=== PATIENT | female | born 2000 | race Caucasian/White ===

== ENCOUNTER 2020-05-07 10:52 | Emergency (ER) | payer OTHER, MEDICAID ==
[~2020-05-07] VITALS: Ht 175.2 cm; Wt 65.5 kg
--- NOTE | 2020-05-07 11:12 | ED General ---
General Stated Complaint: LIGHTHEADED, 9 WKS Source of Information: Patient Exam Limitations: No Limitations History of Present Illness Date Seen by Provider: May 07, 2020 Time Seen by Provider: 11:06 Initial Comments To ER by EMS with reports of lightheadedness and nausea. She was in class when she felt like she might vomit. She got up to go to the bathroom and her vision got dark and she got lightheaded. She opened her eyes and she was sitting on the floor. Does not believe she fell. No nominal cramping or vaginal bleeding. She is 9 weeks gestation following with Dr[address] Chris Bueno out of [place]. Currently on Unisom for n/v. She has had an ultrasound which she reports was normal just last week.. Has been having a lot of nausea with this. Timing/Duration: Intermittent Severity: Moderate Associated Systoms: Denies Symptoms Allergies and Home Medications Allergies Coded Allergies: No Known Drug Allergies (Unverified , 05/07/20) Home Medications Promethazine HCl 25 Mg Tablet, 12.5-25 MG PO Q8H PRN for NAUSEA/VOMITING Prescribed by: MARIAJOSE RAYO on 05/07/20 1308 Patient Home Medication List Home Medication List Reviewed: Yes Review of Systems Review of Systems Constitutional: see HPI EENTM: see HPI Respiratory: no symptoms reported Cardiovascular: no symptoms reported Genitourinary: no symptoms reported Musculoskeletal: no symptoms reported Skin: no symptoms reported Psychiatric/Neurological: No Symptoms Reported Hematologic/Lymphatic: No Symptoms Reported Immunological/Allergic: no symptoms reported Physical Exam Vital Signs Vital Signs - First Documented 05/07/20 10:52 Temp 36.2 Pulse 89 Resp 18 B/P (MAP) 98/66 (77) Pulse Ox 98 Capillary Refill : Height, Weight, BMI Height: '" Weight: lbs. oz. kg; BMI Method: General Appearance: No Apparent Distress, WD/WN, Other (a little hypotensive at 98 systolic. HR normal, O2 100%, alert and oriented. C/o being "shakey". Very pleasant. IV started 22ga left AC by me. ) Eyes: Bilateral Eye Normal Inspection, Bilateral Eye PERRL, Bilateral Eye EOMI HEENT: PERRL/EOMI, TMs Normal Neck: Full Range of Motion, Normal Inspection Respiratory: No Accessory Muscle Use, No Respiratory Distress Cardiovascular: Regular Rate, Rhythm, Normal Peripheral Pulses Gastrointestinal: Normal Bowel Sounds, Non Tender, Soft Extremity: Normal Capillary Refill, Normal Inspection Neurologic/Psychiatric: Alert, Oriented x3 Skin: Normal Color, Warm/Dry Progress/Results/Core Measures Suspected Sepsis SIRS Temperature: Pulse: Respiratory Rate: Laboratory Tests 05/07/20 11:02: White Blood Count 11.2H Blood Pressure / Mean: Laboratory Tests 05/07/20 11:02: Creatinine 0.71, Platelet Count 224, Total Bilirubin 0.9 Results/Orders Lab Results Laboratory Tests Test 05/07/20 11:02 05/07/20 13:01 Range/Units White Blood Count 11.2 H 4.3-11.0 10^3/uL Red Blood Count 4.78 3.80-5.11 10^6/uL Hemoglobin 14.8 11.5-16.0 g/dL Hematocrit 42 35-52 % Mean Corpuscular Volume 89 80-99 fL Mean Corpuscular Hemoglobin 31 25-34 pg Mean Corpuscular Hemoglobin Concent 35 32-36 g/dL Red Cell Distribution Width 11.9 10.0-14.5 % Platelet Count 224 130-400 10^3/uL Mean Platelet Volume 10.2 9.0-12.2 fL Immature Granulocyte % (Auto) 0 % Neutrophils (%) (Auto) 81 H 42-75 % Lymphocytes (%) (Auto) 13 12-44 % Monocytes (%) (Auto) 6 0-12 % Eosinophils (%) (Auto) 0 0-10 % Basophils (%) (Auto) 0 0-10 % Neutrophils # (Auto) 9.0 H 1.8-7.8 10^3/uL Lymphocytes # (Auto) 1.4 1.0-4.0 10^3/uL Monocytes # (Auto) 0.6 0.0-1.0 10^3/uL Eosinophils # (Auto) 0.1 0.0-0.3 10^3/uL Basophils # (Auto) 0.0 0.0-0.1 10^3/uL Immature Granulocyte # (Auto) 0.0 0.0-0.1 10^3/uL Sodium Level 134 L 135-145 MMOL/L Potassium Level 3.9 3.6-5.0 MMOL/L Chloride Level 103 98-107 MMOL/L Carbon Dioxide Level 19 L 21-32 MMOL/L Anion Gap 12 5-14 MMOL/L Blood Urea Nitrogen 9 7-18 MG/DL Creatinine 0.71 0.60-1.30 MG/DL Estimat Glomerular Filtration Rate > 60 BUN/Creatinine Ratio 13 Glucose Level 86 70-105 MG/DL Calcium Level 9.0 8.5-10.1 MG/DL Corrected Calcium 8.8 8.5-10.1 MG/DL Total Bilirubin 0.9 0.1-1.0 MG/DL Aspartate Amino Transf (AST/SGOT) 13 5-34 U/L Alanine Aminotransferase (ALT/SGPT) 15 0-55 U/L Alkaline Phosphatase 55 40-136 U/L Total Protein 7.5 6.4-8.2 GM/DL Albumin 4.3 3.2-4.5 GM/DL Human Chorionic Gonadotropin, Quant [id number] H <5 MIU/ML Urine Color YELLOW Urine Clarity CLEAR Urine pH 6.0 5-9 Urine Specific [place] 1.015 L 1.016-1.022 Urine Protein NEGATIVE NEGATIVE Urine Glucose (UA) NEGATIVE NEGATIVE Urine Ketones 2+ H NEGATIVE Urine Nitrite NEGATIVE NEGATIVE Urine Bilirubin NEGATIVE NEGATIVE Urine Urobilinogen 0.2 < = 1.0 MG/DL Urine Leukocyte Esterase NEGATIVE NEGATIVE Urine RBC (Auto) TRACE-I NEGATIVE Urine RBC NONE /HPF Urine WBC 0-2 /HPF Urine Squamous Epithelial Cells 5-10 /HPF Urine Crystals NONE /LPF Urine Bacteria FEW H /HPF Urine Casts NONE /LPF Urine Mucus NEGATIVE /LPF Urine Culture Indicated NO My Orders Orders - MARIAJOSE RAYO TRANSCRIPTION SPECIALIST Cbc With Automated Diff (05/07/20 11:04) Comprehensive Metabolic Panel (05/07/20 11:04) Ua Culture If Indicated (05/07/20 11:04) Ed Iv/Invasive Line Start (05/07/20 11:04) Hcg,Quantitative (05/07/20 11:04) Ns Iv 1000 Ml (Sodium Chloride 0.9%) (05/07/20 11:15) Diphenhydramine Injection (Benadryl Inje (05/07/20 11:15) Ondansetron Injection (Zofran Injectio (05/07/20 11:15) Lactated Ringers (Lr 1000 Ml Iv Solution (05/07/20 12:15) Medications Given in ED Current Medications Medications Dose Ordered Sig/Ludin Route Start Time Stop Time Status Last Admin Dose Admin Diphenhydramine HCl 12.5 mg ONCE ONCE IVP 05/07/20 11:15 05/07/20 11:16 DC 05/07/20 11:16 12.5 MG Ondansetron HCl 8 mg ONCE ONCE IVP 05/07/20 11:15 05/07/20 11:16 DC 05/07/20 11:15 8 MG Vital Signs/I&O 05/07/20 10:52 Temp 36.2 Pulse 89 Resp 18 B/P (MAP) 98/66 (77) Pulse Ox 98 Capillary Refill : Departure Communication (Admissions) 1305-has received about 1700 mL of fluid so far. Nausea is better. Shakiness is better. Overall feels better. Heart rate made in the 70s. Blood pressure remains in the 90s systolic. I suspect she runs out like this because she has been up to the bathroom ambulatory without recurrent lightheadedness. She is also fairly petite. 1341-Still at 91/55 but reports she feels well, Will dc to home. I was able to speak with Dr Bueno, very pleasant and appreciative of our care. States she is typically a little hypotensive for his clinic at around 100/60s. Impression Primary Impression: Nausea and vomiting during Additional Impressions: Lightheadedness Hypotension Disposition: 01 HOME, SELF-CARE Condition: Stable Departure-Patient Inst. Decision time for Depature: 13:06 Patient Instructions: Nausea and Vomiting of Add. Discharge Instructions: 1. Replete fluids 2. Turn ER for concerns 3. Follow-up with Dr. Bueno this week. Scripts Promethazine HCl (Promethazine Tablet) 25 Mg Tablet 12.5-25 MG PO Q8H PRN for NAUSEA/VOMITING, #14 TAB 0 Refills Prov: MARIAJOSE RAYO APRN 05/07/20 Work/School Note: Work Release Form Date Seen in the Emergency Department: May 07, 2020 Return to Work: May 08, 2020 MARIAJOSE RAYO APRN May 07, 2020 11:12
[2020-05-07 11:13] LABS: BASOPHILS % (AUTO) 0 % (0-10); EOSINOPHILS # (AUTO) 0.1 10^3/uL (0.0-0.3); EOSINOPHILS % (AUTO) 0 % (0-10); HEMATOCRIT 42 % (35-52); HEMOGLOBIN 14.8 g/dL (11.5-16.0); LYMPHOCYTES # (AUTO) 1.4 10^3/uL (1.0-4.0); LYMPHOCYTES % (AUTO) 13 % (12-44); MEAN CORPUSCULAR HEMOGLOBIN 31 pg (25-34); MEAN CORPUSCULAR HGB CONC 35 g/dL (32-36); MEAN CORPUSCULAR VOLUME 89 fL (80-99); MEAN PLATELET VOLUME 10.2 fL (9.0-12.2); MONOCYTES # (AUTO) 0.6 10^3/uL (0.0-1.0); MONOCYTES % (AUTO) 6 % (0-12); NEUTROPHILS % (AUTO) 81 % (42-75); PLATELET COUNT 224 10^3/uL (130-400); WHITE BLOOD COUNT 11.2 10^3/uL (4.3-11.0)
[2020-05-07] MEDS ORDERED: ONDANSETRON 4 MG/2 ML (SDV) Z0FRAN IVP ONE (11:15)
[2020-05-07] MEDS ORDERED: NS IV 1000 ML 1,000 ML IV SCH (11:15)
[2020-05-07] MEDS ORDERED: diphenhydrAMINE 50 MG/ML INJ (BENADRYL) IVP ONE (11:15)
[2020-05-07 11:31] LABS: ALBUMIN 4.3 GM/DL (3.2-4.5); CHLORIDE 103 MMOL/L (98-107); POTASSIUM 3.9 MMOL/L (3.6-5.0); SODIUM 134 MMOL/L (135-145)
[2020-05-07 11:33] LABS: GLUCOSE 86 MG/DL (70-105); TOTAL PROTEIN 7.5 GM/DL (6.4-8.2)
[2020-05-07 11:34] LABS: CARBON DIOXIDE 19 MMOL/L (21-32)
[2020-05-07 11:35] LABS: BILIRUBIN,TOTAL 0.9 MG/DL (0.1-1.0)
[2020-05-07 11:36] LABS: ALKALINE PHOSPHATASE 55 U/L (40-136)
[2020-05-07 11:37] LABS: CREATININE SERUM 0.71 MG/DL (0.60-1.30); GFR ESTIMATED > 60
[2020-05-07 11:38] LABS: BUN/CREATININE RATIO 13
[2020-05-07 11:40] LABS: ALANINE AMINOTRANSFERASE 15 U/L (0-55)
[2020-05-07] MEDS ORDERED: LACTATED RINGERS 1,000 ML IV SCH (12:15)
--- NOTE | 2020-05-07 12:27 | NUR ---
STILL UNABLE TO GIVE UA
--- NOTE | 2020-05-07 13:03 | NUR ---
AMB TO BATHROOM WITHOUT PROBLEM
[2020-05-07] MEDS ORDERED: PROM25TA14 PO (13:08)
[2020-05-07 13:13] LABS: BILIRUBIN,URINE NEGATIVE (NEGATIVE); CLARITY,URINE CLEAR; COLOR,URINE YELLOW; GLUCOSE, URINE (UA) NEGATIVE (NEGATIVE); KETONES,URINE 2+ (NEGATIVE); LEUKOCYTE ESTERASE ,URINE NEGATIVE (NEGATIVE); NITRITE,URINE NEGATIVE (NEGATIVE); PROTEIN,URINE NEGATIVE (NEGATIVE)
[2020-05-07 13:21] LABS: BACTERIA,URINE FEW /HPF; WBC,URINE 0-2 /HPF
--- NOTE | 2020-05-07 13:25 | NUR ---
TO ROOM FLUIDS CON'T TO INFUSE.
--- NOTE | 2020-05-07 13:37 | NUR ---
Ge RAYO CALLED AND TALKED WITH [employer]MENT SUPERVISOR IN [place] CONCERING B/P SYSTOLIC IN 90'S
[2020-05-07 13:49] VITALS: BP 99/52
== END 2020-05-07 13:49 | disposition home or self-care (01) ==
LOC: ER 10:54
DX: O21.8 Other vomiting complicating pregnancy (principal); R42 Dizziness and giddiness; I95.9 Hypotension, unspecified; Z3A.09 9 weeks gestation of pregnancy
CPT/HCPCS: 36415; 80053; 81000; 84702; 85025